=== PATIENT | female | born 1965 | race Caucasian/White ===

== ENCOUNTER → 2017-11-13 | Outpatient (CLI) | payer OTHER ==
[~2017-11-13] MED LIST: BIRTH CONTROL PO; ERGO400 PO; FISH1000 PO; LEVSOD50 PO; MULTIVITAMIN PO
== END | disposition home or self-care (01) ==
LOC: LAB SHORT 11:15 → LAB EV 11:15
DX: R35.0 Frequency of micturition (principal); R30.0 Dysuria
CPT/HCPCS: 87086

== ENCOUNTER → 2019-08-09 | Outpatient (CLI) | payer OTHER | END | disposition home or self-care (01) | LOC: LAB 12:00 → LAB SHORT 12:00 | PROVIDERS: Nurse Practitioner | DX: Z01.419 Encounter for gynecological examination (general) (routine) without abnormal findings (principal) | CPT/HCPCS: G0123 ==

== ENCOUNTER → 2020-08-14 | Outpatient (CLI) | payer OTHER | LOC: LAB SHORT 10:32 → PLD 10:32 | DX: R35.0 Frequency of micturition (principal) | CPT/HCPCS: 87077; 87086; 87186 ==

== ENCOUNTER 2023-01-14 15:01 | Emergency (ER) | payer OTHER ==
[~2023-01-14] VITALS: Ht 182.9 cm; Wt 104.3 kg
[2023-01-14 16:11] LABS: BASOPHILS ABSOLUTE AUTO 0.08 K/mm3 (0.00-0.23); BASOPHILS PERCENT AUTO 1 % (0-2); EOSINOPHILS ABSOLUTE AUTO 0.11 K/mm3 (0.00-0.68); EOSINOPHILS PERCENT AUTO 2 % (0-6); Hematocrit 45.9 % (33.0-51.0); Hemoglobin 15.3 g/dL (11.5-16.0); IMMATURE GRAN ABSOLUTE AUTO 0.01 K/mm3 (0.00-0.10); IMMATURE GRAN PERCENT AUTO 0 % (0-1); LYMPHOCYTES ABSOLUTE AUTO 0.91 K/mm3 (0.84-5.20); LYMPHOCYTES PERCENT AUTO 12 % (21-46); MONOCYTES ABSOLUTE AUTO 0.25 K/mm3 (0.16-1.47); MONOCYTES PERCENT AUTO 3 % (4-13); Mean Corpuscular HGB 29.5 pg (26.0-34.0); Mean Corpuscular HGB Conc 33.3 g/dL (31.5-36.5); Mean Corpuscular Volume 88 fL (80-100); Mean Platelet Volume 11.1 fL (9.1-12.4); NEUTROPHILS PERCENT AUTO 82 % (41-73); Platelet Count 509 K/mm3 (150-400); RDW Coefficient Variation 14.2 % (11.7-14.2); RDW Standard Deviation 45.7 fL (35.1-46.3); Red Blood Cell Count 5.19 M/mm3 (3.80-5.20); White Blood Cell Count 7.36 K/mm3 (4.00-11.30)
[2023-01-14 16:36] LABS: Albumin, Blood 4.1 g/dL (3.4-5.0); Albumin/Globulin Ratio 1.1 (0.8-1.8); Bilirubin, Total 0.3 mg/dL (0.1-1.0); Bun/Creatinine Ratio 22.8 (12.0-20.0); Calcium, Blood 9.7 mg/dL (8.5-10.1); Creatinine, Blood 1.14 mg/dL (0.40-1.00); Globulin, Blood 3.9 g/dL (2.2-4.0); Potassium, Blood 4.4 mmol/L (3.5-5.5)
[2023-01-14 18:19] LABS: Magnesium, Blood 2.4 mg/dL (1.6-2.4)
[2023-01-14 18:21] LABS: Thyroid Stimulating Hormone 1.67 uIU/mL (0.360-4.800)
[2023-01-14 18:46] LABS: Source, Urine Clean Catch
[2023-01-14 18:47] LABS: Appearance, Urine Clear (Clear); Bilirubin, Urine Neg (Neg); Blood, Urine Neg (Neg); Color, Urine Yellow (P-Yellow); Glucose Qualitative, Urine Neg (Neg); Ketones, Urine Neg (Neg); Leukocyte Esterase, Urine Neg (Neg); Nitrite, Urine Neg (Neg); Protein, Urine Neg (Neg); Urobilinogen, Urine NORM (Normal); pH, Urine 6.5 (5.0-8.0)
[2023-01-14 19:15] VITALS: BP 105/60
== END 2023-01-14 19:17 | disposition home or self-care (01) ==
LOC: ER 15:01
PROVIDERS: Student in an Organized Health Care Education/Training Program
DX: R42 Dizziness and giddiness (principal); R20.0 Anesthesia of skin; R20.2 Paresthesia of skin; E03.9 Hypothyroidism, unspecified; Z79.899 Other long term (current) drug therapy
CPT/HCPCS: 70450; 80053; 81003; 83735; 84443; 85025; 93005; 93010; 96360; 99284-25; J7030

== ENCOUNTER 2024-10-09 07:06 | Day surgery (SDC) | payer BC ==
[~2024-10-09] VITALS: Ht 182.9 cm; Wt 89.7 kg
[2024-10-09] MEDS ORDERED: QULIPTA60 MG (07:34)
[2024-10-09] MEDS ORDERED: RIZATRIPTAN10 MG (07:34)
[2024-10-09] MEDS ORDERED: NORT10 (07:34)
[2024-10-09] MEDS ORDERED: propofoL 50 ML IV ONE (08:05)
[2024-10-09] MEDS ORDERED: Lactated Ringer's 1,000 ML IV ONE ×2 (08:05→08:23)
[2024-10-09 09:11] VITALS: BP 109/73
== END 2024-10-09 09:18 | disposition home or self-care (01) ==
LOC: ORSCSDS 07:06
PROVIDERS: Internal Medicine Gastroenterology
PROC: 0DB68ZX Excision of Stomach, Via Natural or Artificial Opening Endoscopic, Diagnostic (ICD-10-PCS; principal; 2024-10-09 08:30)
PROC: 0DBA8ZX Excision of Jejunum, Via Natural or Artificial Opening Endoscopic, Diagnostic (ICD-10-PCS; principal; 2024-10-09 08:30)
PROC: 0DB98ZX Excision of Duodenum, Via Natural or Artificial Opening Endoscopic, Diagnostic (ICD-10-PCS; principal; 2024-10-09 08:30)
DX: R10.13 Epigastric pain (principal); R10.9 Unspecified abdominal pain; E03.9 Hypothyroidism, unspecified; F41.9 Anxiety disorder, unspecified; Z79.899 Other long term (current) drug therapy
CPT/HCPCS: 88305; 88342; J2704; J7120

== ENCOUNTER 2024-11-07 16:45 | Emergency (ER) | payer BC ==
[~2024-11-07] VITALS: Ht 182.9 cm; Wt 88.5 kg
[~2024-11-07 16:45] MED LIST changes: +NORT10; +QULIPTA60 MG; +RIZATRIPTAN10 MG
[2024-11-07 17:07] VITALS: BP 101/74
== END 2024-11-07 20:07 | disposition home or self-care (01) ==
LOC: ER 16:45
DX: S52.571A Other intraarticular fracture of lower end of right radius, initial encounter for closed fracture (principal); E03.9 Hypothyroidism, unspecified; W10.1XXA Fall (on)(from) sidewalk curb, initial encounter; Z79.890 Hormone replacement therapy; Z79.899 Other long term (current) drug therapy
CPT/HCPCS: 25605; 73090; 73110; 99283-25

== ENCOUNTER 2024-11-14 10:12 | Day surgery (SDC) | payer OTHER, BC ==
[~2024-11-14] VITALS: Ht 182.9 cm; Wt 88.4 kg
[~2024-11-14 10:12] MED LIST changes: +Bupivacaine HCl 0.25% 30 ML Injection ONE; +Dexamethasone Sod Phos 10 MG/ML 1ML VIAL ONE; +FentaNYL Citrate 50 MCG/ML 2 ML Injection ONE; +Midazolam HCl 1MG / ML 2ML Vial ONE; +Ondansetron HCl 2 MG / ML 2ML Vial ONE; +propofoL 20 ML IV ONE
[2024-11-14] MEDS ORDERED: CeFAZolin Sodium 2,000 MG VIAL ONE (10:20)
[2024-11-14] MEDS ORDERED: Bupivacaine 0.5% W/EPI 1:200000 SDV 30 ML Vial ONE (10:37)
[2024-11-14] MEDS ORDERED: Lactated Ringer's 1,000 ML IV ONE ×2 (10:37→10:46)
--- NOTE | 2024-11-14 11:37 | NUR ---
11/14/24 1137 Yessi Contreras PT HAD SEVERAL HEALING ABRAISIONS UNDER SPLINT WELL BRUISING
[2024-11-14] MEDS ORDERED: Ondansetron HCl 2 MG / ML 2ML Vial ONE (12:52)
[2024-11-14 13:31] VITALS: BP 105/72
== END 2024-11-14 13:32 | disposition home or self-care (01) ==
LOC: ORSCSDS 10:12
PROVIDERS: Orthopaedic Surgery
PROC: 0PSH04Z Reposition Right Radius with Internal Fixation Device, Open Approach (ICD-10-PCS; principal; 2024-11-14 11:30)
DX: S52.571A Other intraarticular fracture of lower end of right radius, initial encounter for closed fracture (principal); W01.0XXA Fall on same level from slipping, tripping and stumbling without subsequent striking against object, initial encounter; E03.9 Hypothyroidism, unspecified; F41.9 Anxiety disorder, unspecified; Z79.899 Other long term (current) drug therapy
CPT/HCPCS: C1713; J0690; J1100; J2250; J2405; J2704; J3010; J7120